=== PATIENT | female | born 1995 | race Hispanic/Latino ===

== ENCOUNTER 2022-04-03 10:18 | Emergency (ER) | payer BC | END 2022-04-03 11:42 | disposition home or self-care (01) | LOC: CSHERS 10:18 | DX: R09.81 Nasal congestion (principal); Z20.822 Contact with and (suspected) exposure to COVID-19 | CPT/HCPCS: 99283; U0003; U0005 ==

== ENCOUNTER 2022-04-13 10:47 | Emergency (ER) | payer BC ==
[2022-04-13 11:48] LABS: #Basophils 0.1 10x3/uL (0.0-0.2); #Eosinphils 0.6 10x3/uL (0.0-0.5); #Monocytes 0.9 10x3/uL (0.0-1.1); %Basophils 0.5 % (0.0-2.0); %Eosinophils 4.9 % (0.0-6.0); %Lymphocytes 11.6 % (18.0-47.0); %Monocytes 6.8 % (0.0-10.0); %Neutrophils 75.7 % (40.0-75.0); Mean Corpuscular HGB CONC 35.4 g/dL (32.0-36.0); Mean Corpuscular Hemoglobin 30.6 pg (27.0-33.0); Mean Corpuscular Volume 86.4 fl (81.6-98.3); Mean Platelet Volume 9.5 fl (7.4-10.4); Platelet Count 305 10x3/uL (150-450); RBC Distribution Width 12.8 % (11.5-14.5); Red Blood Cell (RBC) Count 4.25 10x6/uL (3.90-5.03); White Blood Cell (WBC) Count 13.2 10x3/uL (3.5-10.5)
[2022-04-13 12:00] LABS: BHCG - Serum POSITIVE (NEGATIVE); Pregs Control Background? CLEAR/WHITE (CLR/WHITE); Pregs Control Bar Appear? YES (CONTROL BAR)
[2022-04-13 12:06] LABS: ALT (SGPT) 13 U/L (8-55); AST (SGOT) 13 U/L (5-34); Albumin 3.5 g/dL (3.5-5.0); Alkaline Phosphatase 55 U/L (40-110); Anion Gap 11 mmol/L (10-20); BUN (Urea Nitrogen) 5 mg/dL (7.0-18.7); Bilirubin, Total 0.4 mg/dL (0.2-1.2); Calc. Creatinine Clearance 0 mL/min (70-130); Calcium 8.7 mg/dL (7.8-10.44); Carbon Dioxide 22 mmol/L (22-29); Chloride 106 mmol/L (98-107); Estimated GFR 128; Globulin 2.7 g/dL (2.4-3.5); Glucose 122 mg/dL (70-105); Potassium 3.5 mmol/L (3.5-5.1); Protein, Total 6.2 g/dL (6.0-8.3); Sodium 135 mmol/L (136-145)
[2022-04-13 12:17] LABS: Bilirubin Neg (Negative); Blood, Urine Negative (Negative); Clarity Clear (Clear); Glucose, Urine (Dipstick) Normal (Negative); Ketone, Urine Negative (Negative); Leukocyte Negative (Negative); Nitrite Negative (Negative); Protein, Urine (Dipstick) Negative (Neg-Trace); Specific Gravity, Urine 1.005 (1.002-1.036); Urobilinogen Normal mg/dL (Less than 2)
== END 2022-04-13 14:27 | disposition home or self-care (01) ==
LOC: CSHERS 10:47
DX: O20.0 Threatened abortion (principal); Z3A.13 13 weeks gestation of pregnancy
CPT/HCPCS: 36415; 76815; 80053; 81003; 84702; 84703; 85025; 86900; 86901

== ENCOUNTER 2022-06-19 09:40 | Day surgery (SDC) | payer BC, SELFPAY ==
[2022-06-19] MEDS ORDERED: hydrALAZINE 20 MG/ML VIAL SLOW IVP PRN (10:28)
[2022-06-19 10:41] VITALS: BMI 23.6
[2022-06-19 11:12] LABS: Bilirubin Neg (Negative); Blood, Urine Negative (Negative); Clarity Clear (Clear); Glucose, Urine (Dipstick) Normal (Negative); Ketone, Urine Negative (Negative); Leukocyte Negative (Negative); Nitrite Negative (Negative); Protein, Urine (Dipstick) Negative (Neg-Trace); Urobilinogen Normal mg/dL (Less than 2)
[2022-06-19 11:13] LABS: Hemoglobin 12.7 g/dL (12.0-15.5); Mean Corpuscular HGB CONC 34.9 g/dL (32.0-36.0); Mean Corpuscular Hemoglobin 31.9 pg (27.0-33.0); Mean Corpuscular Volume 91.5 fl (81.6-98.3); Mean Platelet Volume 9.5 fl (7.4-10.4); Platelet Count 358 10x3/uL (150-450); RBC Distribution Width 13.2 % (11.5-14.5); Red Blood Cell (RBC) Count 3.98 10x6/uL (3.90-5.03); White Blood Cell (WBC) Count 14.4 10x3/uL (3.5-10.5)
[2022-06-19] MEDS ORDERED: Fioricet 325/50/40 mg Tablet PO SCH (11:30)
[2022-06-19] MEDS ORDERED: diphenhydrAMINE 50 MG/ML VIAL IVP SCH (11:30)
[2022-06-19] MEDS ORDERED: Lactated Ringer's 1,000 ML IV SCH (11:30)
[2022-06-19 11:31] LABS: Anion Gap 12 mmol/L (10-20); BUN (Urea Nitrogen) 4 mg/dL (7.0-18.7); Calc. Creatinine Clearance 158 mL/min (70-130); Carbon Dioxide 19 mmol/L (22-29); Chloride 108 mmol/L (98-107); Potassium 3.7 mmol/L (3.5-5.1); Sodium 135 mmol/L (136-145)
[2022-06-19 11:32] LABS: Calcium 9.3 mg/dL (7.8-10.44); Estimated GFR 130; Glucose 67 mg/dL (70-105)
[2022-06-19] MEDS: Metoclopramide HCl 10 MG/2 ML VIAL IVP SCH ×2 (11:42→12:24)
[2022-06-19 11:57] LABS: Bacteria/HPF None Seen HPF (None Seen); RBC/HPF 0-3 HPF (0-3); Squamous Epithelial 0-3 HPF (0-3); WBC/HPF 0-3 HPF (0-3)
== END 2022-06-19 13:00 | disposition home or self-care (01) ==
LOC: CSHLD/OP 09:40
PROVIDERS: ATTEND Obstetrics & Gynecology
DX: O26.892 Other specified pregnancy related conditions, second trimester (principal); R42 Dizziness and giddiness; M79.10 Myalgia, unspecified site; R10.9 Unspecified abdominal pain; R51.9 Headache, unspecified; O99.810 Abnormal glucose complicating pregnancy; E16.2 Hypoglycemia, unspecified; Z3A.22 22 weeks gestation of pregnancy; Z79.899 Other long term (current) drug therapy; Z98.890 Other specified postprocedural states
CPT/HCPCS: 36416; 80048; 81001; 85027; 93005; 93010; J1200; J2765

== ENCOUNTER 2022-10-05 08:01 | Inpatient (IN) | payer MEDICAID, OTHER ==
[2022-10-05 08:35] VITALS: BMI 28.3
[2022-10-05] MEDS ORDERED: Tranexamic Acid 1,000 MG in Sodium Chloride 0.9% 250 ML 250 ML IVPB PRN (11:04)
[2022-10-05] MEDS ORDERED: Promethazine HCl 25 MG/ML VIAL IM PRN ×3 (11:04→18:22)
[2022-10-05] MEDS ORDERED: Zolpidem Tartrate 5 MG TAB PO PRN ×2 (11:04→18:22)
[2022-10-05] MEDS ORDERED: Docusate 100 MG CAP PO PRN (11:04)
[2022-10-05] MEDS ORDERED: Acetaminophen 500 MG TAB PO PRN (11:04)
[2022-10-05] MEDS ORDERED: HYDROcodone/Acetaminophen 5/325 mg Tablet PO PRN ×4 (11:04→18:22)
[2022-10-05] MEDS ORDERED: Carboprost 250 MCG/ML AMP IM PRN (11:04)
[2022-10-05] MEDS ORDERED: Misoprostol 200 MCG TAB PR PRN (11:04)
[2022-10-05] MEDS ORDERED: Methylergonovine 0.2 MG/ML VIAL IM PRN ×2 (11:04→18:22)
[2022-10-05] MEDS ORDERED: Ondansetron PF 4 MG/2 ML Vial IVP PRN ×3 (11:04→18:22)
[2022-10-05] MEDS ORDERED: Butorphanol Tartrate 1 MG/ML VIAL SLOW IVP PRN (11:04)
[2022-10-05] MEDS ORDERED: Ibuprofen 800 MG TAB PO PRN (11:04)
[2022-10-05] MEDS ORDERED: hydrALAZINE 20 MG/ML VIAL SLOW IVP PRN ×2 (11:04→18:22)
[2022-10-05] MEDS ORDERED: Lidocaine 1% (PF) 30 ML VIAL SC PRN (11:04)
[2022-10-05] MEDS ORDERED: Diphenoxylate HCl/Atropine Tablet PO PRN ×2 (11:04)
[2022-10-05] MEDS ORDERED: Lactated Ringer's 1,000 ML IV SCH (11:15)
[2022-10-05] MEDS ORDERED: NS w/ Oxytocin 30 units 500 ML IV SCH ×3 (11:15→18:22)
[2022-10-05 11:18] LABS: Hemoglobin 12.5 g/dL (12.0-15.5); Mean Corpuscular HGB CONC 33.7 g/dL (32.0-36.0); Mean Corpuscular Hemoglobin 29.4 pg (27.0-33.0); Mean Corpuscular Volume 87.3 fl (81.6-98.3); Mean Platelet Volume 10.9 fl (7.4-10.4); Platelet Count 322 10x3/uL (150-450); Red Blood Cell (RBC) Count 4.25 10x6/uL (3.90-5.03); White Blood Cell (WBC) Count 12.3 10x3/uL (3.5-10.5)
[2022-10-05] MEDS ORDERED: Fentanyl 2 mcg/Bup 0.1% Cadd 100 ML ONE (11:23)
[2022-10-05 11:56] LABS: HBSAg Index 0.16 S/CO (0-0.99); Hep B Surf Ag Non-Reactive S/CO (NonReactive)
[2022-10-05 11:58] LABS: Syphilis Antibody Nonreactive (Nonreactive); Syphilis Antibody Index 0.04 S/CO (<1.00 Non-Reactive)
[2022-10-05] MEDS ORDERED: Naloxone HCl 0.4 mg/ml Vial IVP PRN ×2 (11:59)
[2022-10-05] MEDS ORDERED: Acetaminophen 325 MG TAB PO PRN (11:59)
[2022-10-05] MEDS ORDERED: diphenhydrAMINE 50 MG/ML VIAL IVP PRN (11:59)
[2022-10-05] MEDS ORDERED: ePHEDrine Sulfate 50 MG/10 ML VIAL SLOW IVP PRN (11:59)
[2022-10-05] MEDS ORDERED: Moisturizing Cream (Eucerin) 113 GM JAR TOP PRN (11:59)
[2022-10-05] MEDS ORDERED: Lactated Ringer's 500 ML IV PRN (11:59)
[2022-10-05] MEDS ORDERED: Communication Order-Pharmacy FS PRN (12:00)
[2022-10-05] MEDS ORDERED: Fentanyl 2 mcg/Bupivacaine 0.1% Cassette 100 ML EPIDURAL SCH (12:00)
[2022-10-05 18:10] LABS: SARS-CoV-2 NAA Rapid Test Not Detected (NotDetected)
[2022-10-05] MEDS ORDERED: Lanolin Ointment 7 GM TUBE TOP PRN (18:22)
[2022-10-05] MEDS ORDERED: Preparation H Ointment 28 GM TUBE PR PRN (18:22)
[2022-10-05] MEDS ORDERED: Misoprostol 200 MCG TAB VAG PRN (18:22)
[2022-10-05] MEDS ORDERED: Benzocaine-Menthol 82.5 ML CAN TOP PRN (18:22)
[2022-10-05] MEDS ORDERED: diphenhydrAMINE 25 MG CAP PO PRN (18:22)
[2022-10-05] MEDS ORDERED: Milk Of Magnesia 30 ML UDCUP PO PRN (18:22)
[2022-10-05] MEDS ORDERED: Bisacodyl 10 MG SUPP PR PRN (18:22)
[2022-10-05] MEDS ORDERED: Ibuprofen 800 MG TAB PO SCH (18:45)
[2022-10-05] MEDS ORDERED: Ferrous Sulfate 325 MG TAB PO SCH (18:45)
[2022-10-05] MEDS ORDERED: Boostrix 0.5 ML (Tdap) VIAL (>/=7 yrs of age) IM ONE (20:00)
[2022-10-05] MEDS ORDERED: Varicella virus, LIVE 0.5 ML VIAL SC ONE (20:00)
[2022-10-05] MEDS ORDERED: Measles/Mumps/Rubella 10 MCG/0.5 ML VIAL SC ONE (20:00)
[2022-10-05] MEDS: Ibuprofen 800 MG TAB PO SCH (21:42)
[2022-10-05] MEDS: Docusate 100 MG CAP PO SCH (21:42)
[2022-10-06 04:46] LABS: Hemoglobin 10.9 g/dL (12.0-15.5); Mean Corpuscular HGB CONC 33.5 g/dL (32.0-36.0); Mean Corpuscular Hemoglobin 29.5 pg (27.0-33.0); Mean Corpuscular Volume 87.8 fl (81.6-98.3); Mean Platelet Volume 10.5 fl (7.4-10.4); Platelet Count 256 10x3/uL (150-450); White Blood Cell (WBC) Count 11.8 10x3/uL (3.5-10.5)
[2022-10-06] MEDS: Ibuprofen 800 MG TAB PO SCH ×2 (05:37→13:17)
[2022-10-06] MEDS: Docusate 100 MG CAP PO SCH (08:11)
[2022-10-06] MEDS: Ferrous Sulfate 325 MG TAB PO SCH ×2 (09:00→18:38)
[2022-10-06] MEDS ORDERED: Prenatal Vitamin 1 TAB PO SCH (09:00)
[2022-10-06 16:12] VITALS: BP 115/80; TEMP 97.8
== END 2022-10-06 18:35 | disposition home or self-care (01) | DRG 807 ==
LOC: CSHLD/OP 08:01 → CSHLD 10:42 → CSHPP 18:30
PROVIDERS: ADMIT Obstetrics & Gynecology; ATTEND Obstetrics & Gynecology
PROC: 10E0XZZ Delivery of Products of Conception, External Approach (ICD-10-PCS; principal; 2022-10-05)
DX: O80 Encounter for full-term uncomplicated delivery (principal); Z37.0 Single live birth; Z3A.37 37 weeks gestation of pregnancy; Z20.822 Contact with and (suspected) exposure to COVID-19
CPT/HCPCS: 36415; 51702; 85027; 86780; 86850; 86900; 86901; 87340; 99285; U0002